=== PATIENT | female | born 1930 | race Caucasian/White ===

== ENCOUNTER 2017-04-21 12:52 | Inpatient (IN) ==
--- NOTE | 2017-04-21 13:14 | EKG Report ---
Stationary ECG Study [facility] Test Date: 04/21/2017 1:12:13 PM Pat Name: VIRGINIA GAINES Department: Room: 610 Gender: F Occupational Health And Safety Manager: TED : 1930 Requested by: Augustine Mae Order Number: [id number] Reading MD: RORY ALMAZAN Intervals [place] Rate: 72 P: 71 [place]: 154 QRS: -6 QRSD: 96 T: 83 QT: 369 QTc: 393 Interpretive Statements SINUS RHYTHM POSSIBLE LEFT ATRIAL ENLARGEMENT LOW QRS VOLTAGE IN PRECORDIAL LEADS Electronically Signed On 04-22-17 14:45:20 CDT by RORY ALMAZAN [email or web address]
[2017-04-21 13:22] LABS: Basophils % 0.4 % (0.0-0.8); Hematocrit 42.7 VOL% (35.7-47.0); Hemoglobin 14.6 GM/DL (12.0-16.0); Immature Granulocytes % 0.4 %; Immature Granulocytes Absolute 0.04 #; Lymphocytes # 1.4 10*3/uL (1.4-4.0); Lymphocytes % 12.8 % (21.3-54.2); Mean Corpuscular HGB Conc 34.2 GM/DL (32-36); Mean Corpuscular Hemoglobin 31 PG (27-34); Mean Corpuscular Volume 90.1 FL (87-102); Mean Platelet Volume 9.7 FL (9.6-12.0); Monocytes # 0.8 10*3/uL (0.11-0.8); Monocytes % 7.1 % (1.7-12.7); Neutrophils # 8.9 10*3/uL (1.4-7.4); Neutrophils % 79.3 % (38.7-73.9); Platelet Count 268 T/CUMM (130-400); Red Blood Count 4.74 MC/CUMM (3.8-5.5); Red Cell Distribution Width 12.3 % (9.3-17.3); White Blood Count 11.2 T/CUMM (4-12)
[2017-04-21] MEDS ORDERED: SODIUM CHLORIDE 0.9% 100 ML IV ONE (13:39)
[2017-04-21] MEDS ORDERED: ceFAZolin 1,000 MG VIAL ONE (13:39)
[2017-04-21 13:56] LABS: Potassium 4.1 MMOL/L (3.5-5.1)
--- NOTE | 2017-04-21 13:57 | XRay Report ---
History: Respiratory preop evaluation. Patellar fracture Date: 04/21/2017 Study: Chest x-ray AP portable Comparison exam: November 12, 2011 The cardiac silhouette is upper normal size. There is no mediastinal mass. There is mild to moderate aortic arch calcification. The pulmonary vasculature is not engorged. The lungs and pleural spaces are clear. Osseous structures are unchanged. Impression: No acute cardiopulmonary process compared to the previous study PROCEDURE INTERPRETED AT [facility] DEPARTMENT OF RADIOLOGY Final Report Signed by: Dr. Sarah Henriquez
[2017-04-21] MEDS ORDERED: KETOROLAC 30 MG/1 ML VIAL ONE (15:50)
[2017-04-21] MEDS ORDERED: LIDOCAINE 2% 5 ML VIAL ONE (15:50)
[2017-04-21] MEDS ORDERED: PROPOFOL 200 MG/20 ML VIAL IV ONE (15:50)
[2017-04-21] MEDS ORDERED: ONDANSETRON 4 MG/2 ML VIAL ONE (15:50)
[2017-04-21] MEDS ORDERED: PROMETHAZINE 25 MG/1 ML VIAL IM PRN (17:00)
[2017-04-21] MEDS ORDERED: MORPHINE 2 MG/1 ML SYRINGE IV PRN ×3 (17:00→18:31)
[2017-04-21] MEDS ORDERED: ONDANSETRON 4 MG/2 ML VIAL IV PRN ×2 (17:00→17:12)
[2017-04-21] MEDS ORDERED: HYDROmorphone 2 MG/1 ML VIAL ONE (17:10)
[2017-04-21] MEDS: HYDROmorphone 2 MG/1 ML VIAL IV PRN ×4 (17:15→17:30)
[2017-04-21] MEDS: LACTATED RINGERS 1,000 ML IV SCH (18:25)
--- NOTE | 2017-04-21 19:41 | Anesthesia Post-Op ---
Anesthesia Post OP - Post Ansesthetic Evaluation Patient seen in post op: Yes Resp: within normal limits CV: within normal limits Mental: within normal limits Temp: within normal limits Rrjw-[id number]-Kphkcgbsg: within normal limits Nausea and Vomiting: within normal limits Pain: within normal limits
[2017-04-21] MEDS ORDERED: fentaNYL 100 MCG/2 ML VIAL ONE (19:43)
[2017-04-21] MEDS ORDERED: ACETAMINOPHEN 1,000 MG/100 ML VIAL IV ONE (19:43)
[2017-04-21] MEDS ORDERED: LACTATED RINGERS 1,000 ML IV ONE (19:43)
[2017-04-21] MEDS ORDERED: MIDAZOLAM 2 MG/2 ML VIAL ONE (19:43)
[2017-04-21] MEDS ORDERED: SEVOFLURANE 1 UNIT/15 MINUTE INH ONE (19:43)
[2017-04-21] MEDS ORDERED: ePHEDrine 50 MG/ML AMP ONE (19:43)
--- NOTE | 2017-04-22 01:47 | Operative Note ---
DATE OF SURGERY: 04/21/2017 PREOPERATIVE DIAGNOSIS: PATELLA FRACTURE, RIGHT POSTOPERATIVE DIAGNOSIS: SAME. OPERATIVE PROCEDURE: ORIF RIGHT PATELLA WITH EXCISION DISTAL POLE AND EXTENSOR MECHANISM REPAIR. SURGEON: Augustine Mae Jr., MD ANESTHESIA: General. INDICATIONS: This is an 86-year-old white female who fell last night sustaining a displaced and comm inuted patella fracture. It was discussed with she and her family preoperatively the diagnosis and t reatment recommendations including the need for operative repair. It was discussed ORIF versus excis ion of the distal pole with extensor mechanism repair as the most likely procedure. All of their que stions were answered. They appeared to understand and agreed to proceed. OPERATIVE PROCEDURE: The patient was taken to the operating room and under general anesthetic positi oned in the supine position. The right lower extremity prepped and draped in a usual sterile manner. The limb was elevated, exsanguinated, and the tourniquet inflated to 275 mmHg. She received Ancef preoperatively. A midline incision made over the anterior aspect of the right knee. Sharp dissectio n was carried down through skin and subcutaneous tissue. The patella fracture hematoma was evacuated as well as the hemarthrosis. The distal pole was noted to be in multiple fragments 10 to 12. These were sharply excised. A #5 TiCron x2 was interwoven through the medial half and secondly to the lat eral half of the patella. It was brought up through three bone tunnels in the large patella fragment proximal. The extensor mechanism was re-approximated with the knee in extension and both TiCron wer e tied down. This result in good repair. She had a small tear in the retinaculum laterally, which w as repaired using a 0-Vicryl. The wound was then irrigated and closed with 0-Vicryl, 2-0 Vicryl, and max. Tourniquet was deflated at 33 minutes. Sterile dressings were applied. She was placed in a knee immobilizer, awakened, and taken to the recovery room in a stable condition.
[2017-04-22] MEDS: LACTATED RINGERS 1,000 ML IV SCH (04:50)
--- NOTE | 2017-04-22 06:55 | Discharge Summary ---
Hospital Course - Hospital Course Hospital Course: Outpatient observation for repair patella fracture discharged home Diagnosis - Discharge Diagnosis (1) Right patella fracture Status: Acute Discharge Plan - Discharge Data Disposition: Disch To Home/Self Care Condition at Discharge: Stable Discharge Diet: advance to your usual diet Activity: ambulate only with your walker, as per physical therapy, increase activity as tolerated Hygiene: keep area(s) dry Weight Bearing at Discharge: weight bear as tolerated (With knee immobilizer in place) Driving: not until seen by doctor - Discharge Medications New HYDROcodone/ACETAMIN 7.5-325 [Viola 7.5-325] 2 tablet PO Q4H PRN #25 tablet PRN Reason: Pain Severe (8-10) Continue HYDROcodone/ACETAMIN 5-325 [Viola 5-325] 1 tablet PO Q4H PRN #15 tablet PRN Reason: Pain Aspirin 81 mg PO DAILY - Follow Up or Referral - Forms/Instructions Additional Discharge Instructions: Discharged home continue home medications Viola as needed #25 diet as tolerated knee immobilizer in place made touchdown and advance with weightbearing to as tolerated with a walker and knee immobilizer on the right. No range of motion. Follow-up 1 week Exam - Constitutional Vitals: Period Temp Pulse Resp BP Sys/Gallagher Pulse Ox Last 24 Hr 96.9 F-99.2 F 71-96 12-20 111-183/64-86 92-99 Discharge Results Labs on day of discharge: Labs from last 24 hours 04/21/17 04/21/17 13:16 13:16 WBC 11.2 RBC 4.74 Hgb 14.6 Hct 42.7 MCV 90.1 MCH 31 MCHC 34.2 RDW 12.3 Plt Count 268 MPV 9.7 Neut % (Auto) 79.3 H Lymph % (Auto) 12.8 L [place] % (Auto) 7.1 Eos % (Auto) 0.0 Baso % (Auto) 0.4 Neut # (Auto) 8.9 H Lymph # (Auto) 1.4 [place] # (Auto) 0.8 Eos # (Auto) 0.0 Baso # (Auto) 0.0 Immature Gran % 0.4 Nucleated RBC % 0.0 Immature Gran # 0.04 Nucleated RBCs # 0.00 Sodium 141 Potassium 4.1 Chloride 104 Carbon Dioxide 27 Anion Gap 14.1 DS: Provider Consults: 04/21/17 17:00 Consult to Physical Therapy [CONS] Routine Reason for Physical Therapy: Evaluate and Treat Consult Comment: Crutch training or walker weight-bear as tolerated on right with knee immob 04/21/17 17:03 Consult to Case Mgmt/Social Srvs [CONS] Routine Reason for Case Mgmt/Social Srvs: Home Health Rehab Equipment Consult to Occupational Therapy [CONS] Routine Reason for Occupational Therapy: Evaluate and Treat Discharging clinician: Augustine Mae Jr., MD
--- NOTE | 2017-04-22 08:31 | Orthopedic Progress Note ---
Assessment and Plan (1) Right patella fracture Status: Acute Current Visit: Yes Orthopedics - Subjective Interval history: Comfortable dressing dry instructed will start PT today may weight-bear with knee immobilizer in place possible discharge either this afternoon or tomorrow will try to arrange for home health. Exam - Constitutional Vitals: Period Temp Pulse Resp BP Sys/Gallagher Pulse Ox Last 24 Hr 96.0 F-99.2 F 71-96 12-20 111-183/64-86 92-99 Results - Labs CBC & BMP: 04/21/17 13:16 04/21/17 13:16
[2017-04-22] MEDS: ASPIRIN CHEW 81 MG TABLET PO SCH (08:37)
[2017-04-23] MEDS: ASPIRIN CHEW 81 MG TABLET PO SCH (09:03)
[2017-04-23] MEDS: MAGNESIUM HYDROXIDE SUSP 30 ML UDCUP PO PRN ×2 (09:08→18:02)
--- NOTE | 2017-04-23 09:43 | Orthopedic Progress Note ---
Assessment and Plan (1) Right patella fracture Status: Acute Assessment and plan: Continue current care: PT, pain control, DVT prophylaxis Weightbearing as tolerated while in brace DC planning to swing bed Current Visit: Yes Orthopedics - Subjective Interval history: Patient seen and examined. No complaints. Exam - Constitutional Vitals: Period Temp Pulse Resp BP Sys/Gallagher Pulse Ox Last 24 Hr 97.7 F-101.8 F 75-86 16-20 127-159/61-87 92-96 - Extremities Exam Extremities exam: Present: normal inspection ( Right lower extremity: Dressing in extension knee brace intact. Full active range of motion toes and ankle. Compartments soft. Sensation is intact. Cap refill brisk.) Results - Labs CBC & BMP: 04/21/17 13:16 04/21/17 13:16 Lab Results: I have reviewed the past 24 hour labs - Diagnostic Findings Procedure: X-ray: image reviewed by me, report reviewed by me
[2017-04-24] MEDS: MAGNESIUM HYDROXIDE SUSP 30 ML UDCUP PO PRN (05:30)
--- NOTE | 2017-04-24 10:03 | Orthopedic Progress Note ---
Assessment and Plan (1) Right patella fracture Status: Acute Assessment and plan: Continue current care: PT, pain control, DVT prophylaxis Weightbearing as tolerated while in brace Dressing change to the right lower extremity prior to discharge DC planning to swing bed Current Visit: Yes Orthopedics - Subjective Interval history: Patient seen and examined. Sitting in chair. No complaints. Exam - Constitutional Vitals: Period Temp Pulse Resp BP Sys/Gallagher Pulse Ox Last 24 Hr 97.6 F-99.9 F 71-92 16-20 108-146/63-86 92-94 - Extremities Exam Extremities exam: Present: normal inspection (Right lower extremity: Dressing and extension knee brace in place. Full active range of motion foot and ankle. Cap refill brisk. Sensations intact distally.) Results - Labs CBC & BMP: 04/21/17 13:16 04/21/17 13:16
[2017-04-24] MEDS: ASPIRIN CHEW 81 MG TABLET PO SCH (10:05)
--- NOTE | 2017-04-25 09:01 | Orthopedic Progress Note ---
Assessment and Plan (1) Right patella fracture Status: Acute Assessment and plan: Continue current care: PT, pain control, DVT prophylaxis Weightbearing as tolerated while in brace DC planning to swing bed Orthopedics - Subjective Interval history: Patient seen and examined. No complaints Exam - Constitutional Vitals: Period Temp Pulse Resp BP Sys/Gallagher Pulse Ox Last 24 Hr 96.5 F-99.5 F 64-105 16-20 111-142/55-86 91-97 - Extremities Exam Extremities exam: Present: normal inspection (Right lower extremity: Dressing clean, dry, intact. Extension knee brace in place. Compartments soft. Sensation intact. Full active range of motion foot and ankle. Cap refill brisk ) Results - Labs CBC & BMP: 04/21/17 13:16 04/21/17 13:16
[2017-04-25] MEDS: ASPIRIN CHEW 81 MG TABLET PO SCH (09:52)
[2017-04-26] MEDS: ASPIRIN CHEW 81 MG TABLET PO SCH (10:04)
--- NOTE | 2017-04-26 14:16 | Pathology Report from [facility] ---
[facility] [place] : [id number] PATIENT NAME : Virginia Gaines ORDERING DR : JOSE MICHELLE JR, MD CLINICAL HX: Fractured right patella POST-OP DX: Same SPECIMEN INFO: Right patella fragments GROSS DESCRIPTION: Received in formalin labeled VIRGINIA GAINES are fragments of hemorrhagic mello bone and some adipose tissue measuring collectively 5 x 2.7 x 1.5 cm. Group Work Program Director sections are submitted in one cassette following decalcification. DIAGNOSIS FOR VIRGINIA GAINES: RIGHT PATELLA FRAGMENTS: Hemorrhagic trabecular bone consistent with clinical history of fracture. COLLECTED DATE: 04/22/2017 [facility] REPORT DATE: 04/23/2017 ELECTRONICALLY SIGNED BY: Ellen Valles III, M.D. 04/23/2017 - 9:30:56 [facility] CENTERTracy
--- NOTE | 2017-04-27 06:37 | Orthopedic Progress Note ---
Orthopedics - Subjective Interval history: Ms. Noland was seen the evening of April 26. She had decided to be discharged to swing bed as opposed to discharge home. Her incision is clean, dry and intact. She has some bruising of the skin edges distally. She is neurovascularly unchanged. Plan: Discharged to swing bed when bed available. Exam - Constitutional Vitals: Period Temp Pulse Resp BP Sys/Gallagher Pulse Ox Last 24 Hr 97.3 F-99.5 F 65-86 16-20 129-155/55-102 92-96 Results - Labs CBC & BMP: 04/21/17 13:16 04/21/17 13:16 Specialty Discharge - Follow Up or Referrals Follow up with: Augustine Mae Jr., MD [Physician] - 04/28/17 2:50 pm
--- NOTE | 2017-04-27 06:38 | Orthopedic Progress Note ---
Orthopedics - Subjective Interval history: Ms. Foster was seen this morning. She has no new complaints. Wound is unchanged. No drainage. She is neurovascularly unchanged. Plan: Can be discharged to swing bed when bed available. Exam - Constitutional Vitals: Period Temp Pulse Resp BP Sys/Gallagher Pulse Ox Last 24 Hr 97.3 F-99.5 F 65-86 16-20 129-155/55-102 92-96 Results - Labs CBC & BMP: 04/21/17 13:16 04/21/17 13:16 Specialty Discharge - Follow Up or Referrals Follow up with: Augustine Mae Jr., MD [Physician] - 04/28/17 2:50 pm
[2017-04-27 07:35] VITALS: BP 140/67
[2017-04-27] MEDS: ASPIRIN CHEW 81 MG TABLET PO SCH (10:01)
== END 2017-04-27 11:20 | disposition swing bed (61) | DRG 517 ==
LOC: N.OR 12:52 → N.SDSINP 13:13 → N.3E 18:25
PROVIDERS: ADMIT Orthopaedic Surgery; ATTEND Orthopaedic Surgery

== ENCOUNTER 2020-04-25 12:41 | Inpatient (IN) ==
[2020-04-25] MEDS ORDERED: SODIUM CHLORIDE 0.9% 1,000 ML IV STA (14:12)
[2020-04-25] MEDS ORDERED: PANTOPRAZOLE 40 MG VIAL IV STA (14:12)
[2020-04-25 14:55] LABS: Basophils # 0.1 10*3/uL (0.0-0.2); Basophils % 0.6 % (0.0-0.8); Eosinophils % 0.2 % (0.00-10.9); Hemoglobin 12.2 GM/DL (12.0-16.0); Immature Granulocytes % 0.4 %; Immature Granulocytes Absolute 0.04 #; Lymphocytes # 1.6 10*3/uL (1.4-4.0); Mean Corpuscular HGB Conc 32.1 GM/DL (32-36); Mean Corpuscular Volume 90.7 FL (87-102); Mean Platelet Volume 9.6 FL (9.6-12.0); Monocytes % 8.4 % (1.7-12.7); Neutrophils % 73.4 % (38.7-73.9); Platelet Count 359 T/CUMM (130-400); Red Blood Count 4.19 MC/CUMM (3.8-5.5); Red Cell Distribution Width 12.6 % (9.3-17.3); White Blood Count 9.4 T/CUMM (4-12)
[2020-04-25 15:07] LABS: PT Patient Result 10.6 SECS (9.8-11.9); Partial Thromboplastin Time 27.6 SECS (23.9-33.8)
[2020-04-25 15:12] LABS: Alanine Aminotransferase 16 U/L (13-56); Alkaline Phosphatase 76 U/L (45-117); Aspartate Amino Transferase 16 U/L (0-37); Bilirubin,Total < 0.39 MG/DL (0.2-1.0); Blood Urea Nitrogen 20 MG/DL (7-18); Calcium 8.7 MG/DL (8.5-10.1); Estimated Glom Filtration Rate 79 ML/MIN; Glucose 106 MG/DL (74-106); Osmolality,Calculated 279.5 MOS/KG (273-304); Total Protein 7.1 G/DL (6.4-8.3)
[2020-04-25] MEDS ORDERED: ACETAMINOPHEN 325 MG TABLET PO PRN (15:34)
[2020-04-25] MEDS ORDERED: GLUCAGON 1 MG VIAL IM PRN (15:34)
[2020-04-25] MEDS ORDERED: ONDANSETRON 4 MG/2 ML VIAL IV PRN (15:34)
[2020-04-25] MEDS ORDERED: DEXTROSE 10% 250 ML BAG IV PRN (15:34)
[2020-04-25] MEDS ORDERED: SODIUM CHLORIDE 0.9% 1,000 ML IV PRN (15:44)
[2020-04-25 20:11] LABS: Hematocrit 32.7 VOL% (35.7-47.0); Hemoglobin 10.6 GM/DL (12.0-16.0)
[2020-04-25] MEDS: PANTOPRAZOLE 40 MG VIAL IV SCH (20:41)
[2020-04-26 02:02] LABS: Hematocrit 32.8 VOL% (35.7-47.0); Hemoglobin 10.4 GM/DL (12.0-16.0)
[2020-04-26 08:04] LABS: Hematocrit 33.3 VOL% (35.7-47.0); Hemoglobin 10.9 GM/DL (12.0-16.0)
[2020-04-26] MEDS: PANTOPRAZOLE 40 MG VIAL IV SCH ×2 (08:36→20:55)
[2020-04-26 14:38] LABS: Hematocrit 34.6 VOL% (35.7-47.0)
[2020-04-26] MEDS: ATORVASTATIN 20 MG TABLET PO SCH (20:54)
[2020-04-26] MEDS: DOCUSATE SODIUM 100 MG CAPSULE PO PRN (20:54)
[2020-04-27] MEDS: PANTOPRAZOLE 40 MG VIAL IV SCH ×2 (08:28→21:22)
[2020-04-27] MEDS: ATORVASTATIN 20 MG TABLET PO SCH (21:22)
[2020-04-27] MEDS: DOCUSATE SODIUM 100 MG CAPSULE PO PRN (21:22)
[2020-04-28] MEDS: PANTOPRAZOLE 40 MG VIAL IV SCH ×2 (09:16→21:11)
[2020-04-28 15:19] LABS: Hematocrit 30.3 VOL% (35.7-47.0); Hemoglobin 9.6 GM/DL (12.0-16.0)
[2020-04-28] MEDS: DOCUSATE SODIUM 100 MG CAPSULE PO PRN (21:11)
[2020-04-28] MEDS: ATORVASTATIN 20 MG TABLET PO SCH (21:11)
[2020-04-29 06:21] LABS: Basophils # 0.1 10*3/uL (0.0-0.2); Basophils % 0.8 % (0.0-0.8); Eosinophils % 0.5 % (0.00-10.9); Hematocrit 31.5 VOL% (35.7-47.0); Hemoglobin 9.9 GM/DL (12.0-16.0); Immature Granulocytes % 0.5 %; Immature Granulocytes Absolute 0.04 #; Lymphocytes # 1.6 10*3/uL (1.4-4.0); Lymphocytes % 21.8 % (21.3-54.2); Mean Corpuscular HGB Conc 31.4 GM/DL (32-36); Mean Corpuscular Volume 91.6 FL (87-102); Mean Platelet Volume 9.5 FL (9.6-12.0); Monocytes % 11.5 % (1.7-12.7); Neutrophils % 64.9 % (38.7-73.9); Platelet Count 349 T/CUMM (130-400); Red Blood Count 3.44 MC/CUMM (3.8-5.5); Red Cell Distribution Width 12.6 % (9.3-17.3); White Blood Count 7.5 T/CUMM (4-12)
[2020-04-29 06:42] LABS: Calcium 8.5 MG/DL (8.5-10.1); Osmolality,Calculated 268.1 MOS/KG (273-304)
[2020-04-29] MEDS: PANTOPRAZOLE 40 MG VIAL IV SCH (10:01)
[2020-04-29] MEDS: POLYCARBOPHIL 625 MG TABLET PO SCH ×2 (12:57→21:15)
[2020-04-29] MEDS: PANTOPRAZOLE 40 MG TABLET PO SCH (21:11)
[2020-04-29] MEDS: ATORVASTATIN 20 MG TABLET PO SCH (21:12)
[2020-04-30 07:41] LABS: Basophils # 0.1 10*3/uL (0.0-0.2); Basophils % 0.6 % (0.0-0.8); Eosinophils # 0.1 10*3/uL (0.0-0.87); Eosinophils % 0.6 % (0.00-10.9); Hematocrit 29.2 VOL% (35.7-47.0); Hemoglobin 9.6 GM/DL (12.0-16.0); Immature Granulocytes % 0.5 %; Immature Granulocytes Absolute 0.04 #; Lymphocytes # 2.1 10*3/uL (1.4-4.0); Mean Corpuscular HGB Conc 32.9 GM/DL (32-36); Mean Corpuscular Volume 88.5 FL (87-102); Mean Platelet Volume 9.8 FL (9.6-12.0); Monocytes % 11.3 % (1.7-12.7); Platelet Count 358 T/CUMM (130-400); Red Cell Distribution Width 12.7 % (9.3-17.3); White Blood Count 8.8 T/CUMM (4-12)
[2020-04-30] MEDS: POLYCARBOPHIL 625 MG TABLET PO SCH (09:53)
[2020-04-30] MEDS: PANTOPRAZOLE 40 MG TABLET PO SCH (09:53)
[2020-04-30 11:36] VITALS: BP 113/70
== END 2020-04-30 12:54 | disposition home or self-care (01) | DRG 379 ==
LOC: N.EDINP 12:41 → N.ED 12:41 → SUPCPDRO 15:34 → SUATTDRO 15:34 → N.3E 16:40
PROVIDERS: ADMIT Family Medicine; ATTEND Internal Medicine